=== PATIENT | male | born 1990 | race Caucasian/White ===

== ENCOUNTER 2017-06-03 23:30 | Emergency (ER) | payer BC ==
[~2017-06-03] VITALS: Ht 180.3 cm; Wt 87.1 kg
[2017-06-03 23:38] VITALS: BP 136/64
--- NOTE | 2017-06-04 00:01 | NUR ---
PT TAKEN TO BED 4.
--- NOTE | 2017-06-04 00:07 | NUR ---
26YO MALE PATIENT PRESENTS TO ED WITH THROAT PAIN. PT STATES ATE HOT BURRITO FROM [place] AT APPROX. 1900 . DENIES N/V/D; SKIN IS PINK/WARM/DRY; AAOX4 WITH EVEN AND STEADY GAIT; LUNGS CLEAR BL; HR EVEN AND REGULAR; PT DENIES ANY FEVER, CP, SOB, OR COUGH AT THIS TIME; PATIENT STATES PAIN OF 10/10 AT THIS TIME;PT STATES HAD TYLENOL [id number] TABS AT 2300 WITH OUT RELIEF. VSS; PATIENT POSITIONED FOR COMFORT; HOB ELEVATED; BEDRAILS UP X2; BED DOWN. ER MD MADE AWARE OF PT STATUS.
[2017-06-04] MEDS ORDERED: MORPHINE SULFATE 10 MG/ML SYR IM ONE (00:25)
[2017-06-04] MEDS ORDERED: DEXAMETHASONE 10 MG/ML VIAL IM ONE (00:25)
--- NOTE | 2017-06-04 00:54 | NUR ---
NOTIFIED THAT PT FEELS NAUSEATED.
[2017-06-04] MEDS ORDERED: ONDANSETRON 4 MG/2 ML VIAL IM ONE (00:55)
[2017-06-04] MEDS ORDERED: BENZOCAINE/MENTHOL 1 LOZ MM ONE (01:45)
--- NOTE | 2017-06-04 01:50 | NUR ---
hOUSE SUPERVISER NOTIFIED FOR CEPACOL LOZENGES.
[2017-06-04] MEDS ORDERED: BENZOCAINE 20% 57 GM CAN MC ONE (02:30)
[2017-06-04] MEDS ORDERED: ONDANSETRON 4 MG ODT PO ONE (02:40)
[2017-06-04] MEDS ORDERED: MORPHINE SULFATE ORAL SOLN 2 MG/ML UDC PO ONE (02:40)
[2017-06-04] MEDS ORDERED: MORPHINE SULFATE 5 MG/ML VIAL IM ONE (03:20)
[2017-06-04 03:39] VITALS: BP 95/82
--- NOTE | 2017-06-04 05:12 | NUR ---
Patient discharged with v/s stable. Written and verbal after care instructions given and explained. Patient alert, oriented and verbalized understanding of instructions. Ambulatory with steady gait. All questions addressed prior to discharge. ID band removed. Patient advised to follow up with PMD. Rx of Prelone and Cepacol given. Patient educated on indication of medication including possible reaction and side effects. Opportunity to ask questions provided and answered.
== END 2017-06-04 03:39 | disposition home or self-care (01) ==
LOC: MED 23:30
DX: T28.0XXA Burn of mouth and pharynx, initial encounter (principal); X10.1XXA Contact with hot food, initial encounter; Y93.89 Activity, other specified; Y92.89 Other specified places as the place of occurrence of the external cause; Y99.8 Other external cause status
CPT/HCPCS: 96372; 99284; J1100; J2270; J2405; S0119